=== PATIENT | female | born 1955 | race Asian ===

== ENCOUNTER 2023-02-04 15:02 | Emergency (ER) | payer MEDICARE, OTHER ==
[~2023-02-04] VITALS: Ht 154.9 cm; Wt 75.0 kg
[~2023-02-04 15:02] MED LIST: CLON1PAT3 TD; LOSA100T3 PO; METHI5 PO; METO-408 PO; NIFE-79 PO
[2023-02-04] MEDS ORDERED: TACR0.5C21 PO (15:14)
[2023-02-04] MEDS ORDERED: MYCO180T3 PO (15:14)
[2023-02-04] MEDS ORDERED: FAMO20 PO (15:23)
[2023-02-04] MEDS ORDERED: AMLO2.5T96 PO (15:23)
[2023-02-04] MEDS ORDERED: ASPI-1444 PO (15:24)
[2023-02-04] MEDS ORDERED: TELM20 PO (15:24)
[2023-02-04 16:19] LABS: HEMATOCRIT 38.4 % (36-46); HEMOGLOBIN 12.2 g/dL (12.0-16.0); MEAN CORPUSCULAR HEMOGLOBIN 28.7 pg (26.0-34.0); MEAN CORPUSCULAR HGB CONC 31.9 G/dL (31.0-37.0); MEAN CORPUSCULAR VOLUME 90 fL (80-100); PLATELET COUNT (AUTO) 216 K/uL (150-450); RED BLOOD CELL COUNT(AUTO) 4.27 MIL/uL (4.00-5.20); RED CELL DISTRIBUTION WIDTH 13.7 % (11.5-14.5)
[2023-02-04 17:05] LABS: BAND NEUTROPHILS % (MANUAL) 0 % (0-5); CALCIUM, TOTAL 9.5 mg/dL (8.8-10.5); CREATININE 0.99 mg/dL (0.60-1.30); POTASSIUM 4.3 mmol/L (3.5-5.1)
[2023-02-04 17:06] LABS: LYMPHOCYTES % (MANUAL) 57 % (22-44); MONOCYTES % (MANUAL) 8 % (2-9); SEGMENTED NEUTROPHILS % 35 % (40-70)
[2023-02-04 17:26] LABS: ALBUMIN 4.3 g/dL (3.4-5.0); BILIRUBIN,TOTAL 0.5 mg/dL (0.1-1.0); TOTAL PROTEIN, SERUM 7.8 g/dL (6.4-8.2)
[2023-02-04 20:30] VITALS: BP 131/84
== END 2023-02-04 23:16 | disposition home or self-care (01) ==
LOC: EMS 15:19
DX: R07.89 Other chest pain (principal); I10 Essential (primary) hypertension; Z98.890 Other specified postprocedural states; Z91.040 Latex allergy status
CPT/HCPCS: 71045; 80053; 82550; 83880; 84484; 85025; 93005; 99284; 99285; 36415-L1; 36415-TC

== ENCOUNTER 2025-03-11 20:05 | Observation (INO) | payer MEDICARE, OTHER ==
[~2025-03-11] VITALS: Ht 154.9 cm; Wt 63.9 kg
[~2025-03-11 20:05] MED LIST changes: +AMLO2.5T96 PO; +ASPI-1444 PO; -CLON1PAT3 TD; +FAMO20 PO; +LOSA-420 PO; -LOSA100T3 PO; -METHI5 PO; +METHIMAZOLE5 MG PO; +MYCO180T3 PO; -NIFE-79 PO; +TACR0.5C21 PO; +TELM20 PO
[2025-03-11] MEDS ORDERED: ATOR-2 PO (20:21)
[2025-03-11] MEDS ORDERED: AMLO5TAB66 PO (20:21)
[2025-03-11] MEDS ORDERED: TELM40TA8 PO (20:21)
[2025-03-11] MEDS ORDERED: TACR1CAP12 PO (20:21)
[2025-03-11] MEDS ORDERED: METO-391 PO (20:21)
[2025-03-11 22:29] LABS: APPEARANCE,URINE CLEAR (CLEAR); BILIRUBIN,URINE NEGATIVE (NEGATIVE); COLOR,URINE COLORLESS (YELLOW); GLUCOSE, URINE (UA) NEGATIVE (NEGATIVE); KETONES,URINE NEGATIVE (NEGATIVE); LEUKOCYTE ESTERASE ,URINE NEGATIVE (NEGATIVE); NITRATE,URINE NEGATIVE (NEGATIVE); OCCULT BLOOD,URINE NEGATIVE (NEGATIVE); PROTEIN,URINE NEGATIVE (NEGATIVE); SPECIFIC GRAVITIY, URINE 1.004 (1.003-1.030); UROBILINOGEN,URINE <=1.0 mg/dL (<=1.0)
[2025-03-11 22:39] LABS: CALCIUM, TOTAL 9.3 mg/dL (8.8-10.5); CARBON DIOXIDE 25 mmol/L (22-29); CHLORIDE 99 mmol/L (98-107); CREATININE 1.05 mg/dL (0.60-1.30); GLOMERULAR FILTR. RATE CALC 52 mL/min (>60); GLUCOSE,RANDOM 115 mg/dL (70-110); UREA NITROGEN, BLOOD 17 mg/dL (7-18)
[2025-03-11 22:40] LABS: BASOPHILS % (AUTO) 0.7 % (0.0-2.0); EOSINOPHILS % (AUTO) 2.8 % (1.0-6.0); HEMATOCRIT 40.5 % (36-46); HEMOGLOBIN 13.3 g/dL (12.0-16.0); LYMPHOCYTES # (AUTO) 2.8 K/uL (1.0-4.8); LYMPHOCYTES % (AUTO) 30.1 % (22.0-44.0); MEAN CORPUSCULAR HEMOGLOBIN 29.6 pg (26.0-34.0); MEAN CORPUSCULAR HGB CONC 32.8 G/dL (31.0-37.0); MEAN CORPUSCULAR VOLUME 90 fL (80-100); MONOCYTES # (AUTO) 0.8 K/uL (0.1-1.0); NEUTROPHILS # (AUTO) 5.5 K/uL (1.8-7.7); NEUTROPHILS % (AUTO) 58.4 % (40.0-70.0); PLATELET COUNT (AUTO) 196 K/uL (150-450); RED BLOOD CELL COUNT(AUTO) 4.49 MIL/uL (4.00-5.20); RED CELL DISTRIBUTION WIDTH 13.4 % (11.5-14.5); WHITE BLOOD COUNT (AUTO) 9.5 K/uL (4.5-11.0)
[2025-03-11 22:44] LABS: ALBUMIN 4.1 g/dL (3.4-5.0); BILIRUBIN,DIRECT 0.1 mg/dL (0.00-0.20); BILIRUBIN,TOTAL 0.5 mg/dL (0.1-1.0); TOTAL PROTEIN, SERUM 7.7 g/dL (6.4-8.2)
[2025-03-11 22:50] LABS: TROPONIN I-HIGH SENSITIVITY 5 ng/L (<51)
[2025-03-11] MEDS ORDERED: SODIUM ZIRCONIUM CYCLOSILICATE 10 GM POWDER PACKET PO ONE (23:15)
[2025-03-11 23:20] LABS: ANION GAP 9 mmol/L (8-16); SODIUM SERUM 133 mmol/L (136-145)
[2025-03-11 23:21] LABS: POTASSIUM 4.6 mmol/L (3.5-5.1)
[2025-03-11] MEDS ORDERED: MAGNESIUM HYDROXIDE SUSPENSION 30 ML UDCUP PO PRN (23:30)
[2025-03-11] MEDS ORDERED: HydrALAZINE HCL 20 MG/ML VIAL IVP PRN (23:30)
[2025-03-11] MEDS ORDERED: ACETAMINOPHEN 325 MG TABLET PO PRN (23:30)
[2025-03-11] MEDS ORDERED: ONDANSETRON HCL 4 MG/2 ML VIAL IVP PRN (23:30)
[2025-03-11] MEDS: AmLODIPine BESYLATE 5 MG TABLET PO SCH (23:40)
[2025-03-11] MEDS: HEPARIN SODIUM,PORCINE 5,000 UNITS/ML VIAL SQ SCH (23:45)
[2025-03-12 02:21] VITALS: BP 137/73; PULSE 59; RESP 16; TEMP 98.1; O2SAT 96
[2025-03-12 04:00] VITALS: BP 149/82; PULSE 67; RESP 18; TEMP 97.7; O2SAT 96
[2025-03-12 06:47] LABS: CALCIUM, TOTAL 9.2 mg/dL (8.8-10.5); CREATININE 1.01 mg/dL (0.60-1.30)
[2025-03-12 07:58] VITALS: BP 135/74; PULSE 72; RESP 18; TEMP 98; O2SAT 95
[2025-03-12] MEDS: TACROLIMUS 1 MG CAPSULE PO SCH (08:18)
[2025-03-12] MEDS: ASPIRIN 81 MG CHEWABLE TABLET PO SCH (08:18)
[2025-03-12] MEDS: ATORVASTATIN CALCIUM 20 MG TABLET PO SCH (08:20)
[2025-03-12] MEDS: FAMOTIDINE 20 MG TABLET PO SCH (08:20)
[2025-03-12 11:36] VITALS: BP 135/70; PULSE 64; RESP 18; TEMP 98.3; O2SAT 96
== END 2025-03-12 12:55 | disposition home or self-care (01) ==
LOC: EMS 20:05 → EDH 23:21 → INTOOBSV 23:21 → 5S 03-12 02:03 → UNDODISIN 03-12 12:55
PROVIDERS: ADMIT Internal Medicine; ATTEND Internal Medicine
DX: R42 Dizziness and giddiness (principal); E87.5 Hyperkalemia; I12.0 Hypertensive chronic kidney disease with stage 5 chronic kidney disease or end stage renal disease; N18.6 End stage renal disease; Z91.041 Radiographic dye allergy status; Z94.0 Kidney transplant status; Z79.899 Other long term (current) drug therapy
CPT/HCPCS: 99219 ×2; 80048 ×2; 80076; 81003; 82550; 83880; 84484; 85025; 36415 ×2; 71045; 99285; 93005; J7507; G0378; J1644